=== PATIENT | female | born 1965 | race Caucasian/White ===

== ENCOUNTER 2020-10-13 10:28 | Emergency (ER) | payer BC, SELFPAY ==
[2020-10-13] VITALS (13 sets, daily range): BP systolic 120–172; BP diastolic 91–107; PULSE 79–99; RESP 16–27; TEMP 36.6; O2SAT 95–98
--- NOTE | ~2020-10-13 | XR_ITS ---
EXAMINATION: XR shoulder LT min 2V DATE: 10/13/2020 11:28 INDICATION: Left shoulder pain. TECHNIQUE: 4 views of left shoulder were obtained. COMPARISON: None. FINDINGS: Bone alignment is normal. No fracture. The glenohumeral joint is normal. There is mild acro mioclavicular joint osteoarthritis. There is a small focus of calcific tendinitis involving the rotat or cuff. IMPRESSION: 1. Mild acromioclavicular joint osteoarthritis. 2. Calcific tendinitis of left rotator cuff. Reviewed, dictated and finalized at location B. NEL ACCOUNT MANAGER
--- NOTE | ~2020-10-13 | XR_ITS ---
XR chest 1V portable DATE: 10/13/2020 11:16 INDICATION: Hypertension. Left arm pain. TECHNIQUE: Portable AP chest on 10/13/2020 1101 hours COMPARISON: 04/01/2011 PA and lateral chest FINDINGS: Normal heart size. No hilar or mediastinal enlargement. There is mild discoid atelectasis or scarring in the lateral left lower lung and minimal infiltrate o r atelectasis at the right lung base. No pulmonary infiltrate or consolidation, pleural effusion or pulmonary vascular congestion or pneumo thorax is noted otherwise. IMPRESSION: Minimal infiltrate or atelectasis at the right lung base and mild focal discoid atelectas is or scarring at the lateral left lower lung Reviewed, dictated and finalized at location A. DER IMPRESSION: Minimal infiltrate or atelectasis at the right lung base and mild f ocal discoid atelectasis or scarring at the lateral left lower lung
--- NOTE | 2020-10-13 10:40 | ECG_ITS ---
Measurements Intervals [place] Rate: 85 P: 51 FL: 142 QRS: 57 QRSD: 88 T: 40 QT: 334 QTc: 399 Interpretive Statements SINUS RHYTHM NORMAL ECG Electronically Signed On 10-13-2020 10:58:49 FORM SETTER HELPER by Ricardo Craig D.O.
[2020-10-13 10:47] LABS: Basophils Absolute Auto 0.1 K/mm3 (0.0-0.1); Basophils Percent Auto 0.7 % (0.2-1.2); Eosinophils Absolute Auto 0.2 K/mm3 (0-0.3); Eosinophils Percent Auto 2.1 % (0-4.4); Hematocrit 44.5 % (37.0-47.0); Hemoglobin 15.3 g/dL (12.0-15.0); Immature Granulocyte Absolute 0.08 K/mm3 (0.00-0.031); Immature Granulocyte Percent A 0.7 % (0-0.5); Lymphocytes Absolute Auto 2.41 K/mm3 (0.9-3.2); Lymphocytes Percent Auto 21.8 % (18.3-44.2); Mean Corpuscular HGB Conc 34.4 g/dl (32-36); Mean Corpuscular Volume 90.1 fl (80-100); Mean Platelet Volume 10.2 fl (7.4-10.4); Monocytes Absolute Auto 0.9 K/mm3 (0.1-0.6); Monocytes Percent Auto 7.9 % (2.6-8.5); Neutrophils Absolute Auto 7.4 K/mm3 (1.3-6.7); Neutrophils Percent Auto 66.8 % (45.5-73.1); Platelet Count Result 268 k/mm3 (150-375); Red Blood Count 4.94 M/mm3 (4.2-5.4); Red Cell Distribution Width 12.4 % (11.5-14.5); White Blood Count 11.1 K/mm3 (4.5-10.0)
[2020-10-13] MEDS: ASPIRIN 81 MG CHEWABLE TABLET 324 MG PO (10:50)
[2020-10-13 10:58] LABS: INR 0.9; Prothrombin Time 12.9 Seconds (11.1-14.7)
[2020-10-13 10:59] LABS: Partial Thromboplastin Time 27.6 SECONDS (22.3-36.8)
[2020-10-13 11:01] LABS: Anion Gap 9 mmol/L (8-16); Blood Urea Nitrogen 12 mg/dL (7-17); Calcium 9.5 mg/dL (8.4-10.2); Carbon Dioxide 28 mmol/L (22-30); Chloride 100 mmol/L (98-107); Estimated CRCL calculation 80 ml/min; Estimated Glomerular Filt Rate > 60; Glucose 107 mg/dL (65-105); Potassium 4.5 mmol/L (3.4-5.0); Sodium 137 mmol/L (137-145)
[2020-10-13 11:12] LABS: Troponin I < 0.012 ng/mL (0.000-0.034)
[2020-10-13] MEDS: KETOROLAC 15 MG/ML VIAL (*BKC) IV PUSH (12:00)
[2020-10-13] MEDS: carvediloL 6.25 MG TABLET PO (12:01)
--- NOTE | 2020-10-13 12:53 | ED.GENADULT ---
HPI - General Adult General Chief complaint: Extremity Injury, Upper Stated complaint: left shoulder pain Time Seen by Provider: 10/13/20 10:35 Source: patient Mode of arrival: ambulatory Limitations: no limitations History of Present Illness HPI narrative: Patient presents with CC of left shoulder pain over the last 3 days. She states she has felt like it is pulled or strained and when she moves it feels a bit better but she had trouble sleeping with it last night so she went to [facility] today and when they heard it was her left shoulder, she had elevated blood pressure and a family history of [place] they directed her to the ER. Patient states that she has not taken her blood pressure medication yet today as she has awakened hour between taking her thyroid medication carvedilol. Patient reports she has not ever had any pain to her chest or any pain radiating from her chest to her back or into her arm or jaw. Patient states the pain is localized to her left shoulder. Patient denies any diaphoresis, dizziness, palpitations, weakness, nausea, vomiting. Patient denies smoking, drinks socially, denies using any recent recreational drugs including marijuana. Patient denies history of MIs or strokes. Patient states that her mother had a triple bypass in her 50s and her brother of a heart attack at age 47. Related Data Home Medications Medication Instructions Recorded Confirmed Nature-Throid 10/13/20 carvedilol 6.25 mg PO BID 10/13/20 10/13/20 Allergies Allergy/AdvReac Type Severity Reaction Status Date / Time No Known Allergies Allergy Unverified 01/07/19 11:03 Review of Systems Review of Systems: Narrative: CONSTITUTIONAL: Denies fever, chills, or sweats. EYES: Denies visual changes, redness, or discharge. ENT: Denies rhinorrhea, congestion, sore throat, or otalgia. CARDIOVASCULAR: Denies chest pain, palpitations, or edema. RESPIRATORY: Denies cough or dyspnea. GASTROINTESTINAL: Denies abdominal pain, nausea, vomiting, or diarrhea. GENITOURINARY: Denies dysuria or hematuria. SKIN: Denies rash or itching. MUSCULOSKELETAL: Reports left shoulder pain Denies back pain, joint pain, or myalgia. NEUROLOGIC: denies headache, numbness, dizziness, or weakness. PSYCHIATRIC: Denies anxiety or depression. [facility] Past Medical History Medical History (Updated 10/13/20 @ 15:39 by Tammy Hernández PA-C) Hypothyroidism Family History Family History (Updated 09/09/18 @ 09:26 by DOCTOR UNKNOWN) Father Hypertension Sibling Hypertension Social History Social History (Updated 10/13/20 @ 13:05 by Tammy Hernández PA-C) Smoking status: Never smoker Alcohol use details: Social Substance use: never Gender identity (if verbalized by the patient): Female Exam Narrative: Exam Narrative: GENERAL: Well-appearing, well-nourished, and in no acute distress. Patient smiling and talking normally. She is not diaphoretic and does not appear to be in any discomfort or distress. HEAD: Normocephalic, atraumatic. EYES: PERRLA and EOMI. CHEST: No tenderness with palpation of chest wall. Clear to auscultation. No respiratory distress. No wheezes rales or rhonchi HEART: Regular rate and rhythm. No murmur heard. Normal peripheral pulses. ABDOMEN: Soft, nontender, nondistended, normal active bowel sounds. EXTREMITIES: Normal range of motion to left shoulder. Pain not elicited with range of motion or palpation. No edema or outward signs of deformity. SKIN: Warm, dry, no rash. NEURO: No focal deficits. Alert and oriented x3. PSYCH: Normal mood and affect. Course Vital Signs Vital signs: Vital Signs Temperature 97.8 F 10/13/20 10:33 Pulse Rate 82 10/13/20 10:33 Respiratory Rate 23 H 10/13/20 10:33 Blood Pressure 172/107 H 10/13/20 10:33 Pulse Oximetry 98 10/13/20 10:33 Temperature 97.9 F 10/13/20 15:38 Pulse Rate 93 10/13/20 15:38 Respiratory Rate 19 10/13/20 15:38 Blood Pressure 161/91 H 10/13/20
[2020-10-13 14:31] LABS: Troponin I < 0.012 ng/mL (0.000-0.034)
[2020-10-13] MEDS: hydrALAZINE HCL 20 MG/ML VIAL 10 MG IV PUSH (14:43)
== END 2020-10-13 15:56 | disposition home or self-care (01) ==
PROVIDERS: Emergency Provider Emergency Medicine
DX: I10 Essential (primary) hypertension (principal); S43.402A Unspecified sprain of left shoulder joint, initial encounter; E03.9 Hypothyroidism, unspecified; X58.XXXA Exposure to other specified factors, initial encounter
CPT/HCPCS: 36415; 71045; 73030; 80048; 84484; 85025; 85610; 85730; 93005; 96374; 99284; A9270; J0360; J1885

== ENCOUNTER 2022-12-05 08:00 | Outpatient (NON) | payer BC, SELFPAY | END 2022-12-05 08:01 | disposition home or self-care (01) | PROVIDERS: Visit Provider Nurse Practitioner | DX: L57.0 Actinic keratosis (principal) | CPT/HCPCS: 88305 ==

== ENCOUNTER 2023-02-13 10:14 | Outpatient (NON) | payer BC, SELFPAY | END 2023-02-13 10:15 | disposition home or self-care (01) | LOC: ANHLAB 02-14 10:16 | PROVIDERS: Visit Provider Nurse Practitioner | DX: D22.5 Melanocytic nevi of trunk (principal) | CPT/HCPCS: 88305 ==